=== PATIENT | female | born 1980 | race Caucasian/White ===

== ENCOUNTER 2019-04-21 21:50 | Emergency (ER) | payer MEDICARE, MEDICAID ==
[~2019-04-21] VITALS: Ht 157.5 cm; Wt 65.3 kg
[2019-04-21 22:02] VITALS: BP 153/73
--- NOTE | 2019-04-21 22:07 | NUR ---
BIB [facility] W/ CO INCREASING WEAKNESS/PALPITATIONS X TODAY. +NAUSEA. HX OF SAME WITH HYPOKALEMIA. PT REPORTS OFF ALL MEDICAITONS X FOUR DAYS. PT WITH GENERALIZED WEAKNESS AND MODERATE WEAKNESS OF LLE. LLE WEAKNESS BASELINE SP STROKE. HX OF STROKE X3; FACE SYMMETRICAL, SPEECH CLEAR, STRENGTH AT BASELINE PER PT. BP/SPO2/ECG MONITORING IN PLACE. NSR ON MONITOR. EKG COMPLETED UPON ARRIVAL. TECH AT BEDSIDE FOR IV PLACEMENT.
[2019-04-21 22:31] LABS: BASOPHILS # (AUTO) 0.06 x10^3/uL (0-0.1); BASOPHILS % (AUTO) 1 % (0-1); EOSINOPHILS # (AUTO) 0.15 x10^3/uL (0-0.4); EOSINOPHILS % (AUTO) 2 % (1-7); LYMPHOCYTES # (AUTO) 3.52 x10^3/uL (1-3.4); LYMPHOCYTES % (AUTO) 36 % (22-44); MD NO; MEAN CORPUSCULAR HEMOGLOBIN 28.8 pg (27.0-34.8); MEAN CORPUSCULAR HGB CONC 32.1 g/dL (32.4-35.8); MEAN CORPUSCULAR VOLUME 89.5 fL (80-100); MEAN PLATELET VOLUME 7.6 fL (7.4-10.4); MONOCYTES % (AUTO) 5 % (2-9); NEUTROPHILS # (AUTO) 5.46 x10^3/uL (1.8-6.8); NEUTROPHILS % (AUTO) 56 % (42-75); PLATELET COUNT 558 x10^3/uL (130-400); RED BLOOD COUNT 4.82 x10^6/uL (3.82-5.3); RED CELL DISTRIBUTION WIDTH 13.9 % (9.6-15.2)
[2019-04-21 22:39] LABS: ALANINE AMINOTRANSFERASE 33 U/L (12-78); ALBUMIN 4.3 g/dL (3.4-5.0); ANION GAP 8 mmol/L (5-15); CALCIUM 9.8 mg/dL (8.5-10.1); CHLORIDE 107 mmol/L (98-107); CREATININE 0.89 mg/dL (0.55-1.02)
[2019-04-21 22:44] LABS: ALKALINE PHOSPHATASE 99 U/L (45-117); BILIRUBIN,TOTAL 0.2 mg/dL (0.2-1.0); TOTAL PROTEIN 8.8 g/dL (6.4-8.2); TROPONIN I < 0.015 ng/mL (0.000-0.045)
--- NOTE | 2019-04-21 23:34 | NUR ---
POC IS DC. IV DC'D, PT OFF MONITORING. AWAITING DC INSTRUCTIONS.
--- NOTE | 2019-04-21 23:40 | NUR ---
DC EDUCATION PROVIDED, PT DEMONSTRATES UNDERSTANDING. PT TRANSFERED SELF TO WHEELCHAIR. WHEELED TO DC BY RN. FRIEND TO TRANSPORT PT HOME.
== END 2019-04-21 23:42 | disposition home or self-care (01) ==
LOC: ED 22:57
DX: R53.1 Weakness (principal); R11.0 Nausea; R00.2 Palpitations; Z72.9 Problem related to lifestyle, unspecified; Z86.73 Personal history of transient ischemic attack (TIA), and cerebral infarction without residual deficits
CPT/HCPCS: 36415; 71045; 80053; 83735; 84484; 85025; 93005; 99284